=== PATIENT | female | born 1945 | race African-American/Black ===

== ENCOUNTER 2016-07-10 17:07 | Inpatient (IN) | payer MEDICARE ==
[2016-07-10 15:55] LABS: URINE APPEARANCE HAZY; URINE BILIRUBIN NEGATIVE (NEG); URINE BLOOD MODERATE (NEG); URINE COLOR YELLOW; URINE GLUCOSE (UA) NEGATIVE (NEG); URINE KETONE NEGATIVE (NEG); URINE LEUKOCYTE ESTERASE NEGATIVE (NEG); URINE NITRITE NEGATIVE (NEG); URINE PROTEIN MODERATE (NEG)
[2016-07-10 16:01] LABS: URINE AMORPHOUS 1+; URINE BACTERIA 3+
[2016-07-10 16:02] LABS: URINE EPITHELIAL CELLS 0 /[HPF] (0-10)
[2016-07-10 16:05] LABS: URINE RBC 30-50 /[HPF] (0-5)
[~2016-07-10 17:07] MED LIST: "\\\"BLOOD PRESSURE MED\\\""; ALL DAY ALLERGY10 M7 PO; ALPHAGAN P5 M1 EACH EYE; AUGMENTIN 875-1 EAC2 PO; AUGMENTIN875 MG PO; CALCIUM 500 +1 EAC9 PO; CATAPRES0.1 MG PO; CENTRUM TABLET1 TAB PO; COLACE100 MG PO; COMBIGAN EYE DRO5 ML OP; DILAUDID2 M1 PO; DILAUDID2 MG PO; DULCOLAX10 MG PR; DULCOLAX10 MG RC; DURAGESIC1 EAC1 TOP; ENALAPRIL MALEA10 MG PO; ENSURE PO; FENTANYL1 PATCH . TOP; FENTANYL1 PATCH .7 TOP; HYDROCODONE-AP473 ML PO; LEVAQUIN500 MG PO; LEVOXYL PO; LEVOXYL125 MCG PO; LISINOPRIL-HC PO; LISINOPRIL/HCTZ; LISINOPRIL10 M1 PO; LISINOPRIL20 MG PO; LISINOPRIL40 MG PO; MAXZIDE1 TAB PO; MEDROL4 M2 PO; MIRALAX17 G2 PO; NORCO 5/3251 TAB PO; NORVASC10 M2 PO; NORVASC10 MG PO; OMEPRAZOLE20 M2 PO; OS-CAL 500+D TA1 TAB PO; PLAVIX75 MG PO; POTASSIUM CHLO10 MEQ PO; PRAVACHOL10 MG PO; RANITIDINE HCL150 M3 PO; SENNA PLUS TAB1 EAC1 PO; TUSSIN100 MG/52 PO; TYLENOL325 M2 PO; TYLENOL325 MG PO; VITAMIN B6100 MG PO; VITAMIN B650 M1 PO; VITAMIN E400 UNI1 PO; ZESTORETIC 20-1 EAC1 PO; ZITHROMAX250 M1 PO; ZOFRAN4 MG PO
[2016-07-10 17:28] LABS: HCT-HEMATOCRIT 29.9 % (34.0-49.0); HGB-HEMOGLOBIN 9.8 gm/dl (12.0-15.5); LYMPH % 61.3 % (20-45); MCH (MEAN CORPUSCULAR HGB) 30.6 pg (28.0-32.0); MCHC MEAN CORPUSCULAR HGB CONC 32.8 % (32.0-36.0); MCV (MEAN CELL VOLUME) 93.4 fl (82.0-96.0); MEAN PLATELET VOLUME 9.6 cmc (9.4-12.4); MONO % 27.7 % (0-12); MONOCYTE ABSOLUTE COUNT 0.4 tho/cmm (0.0-1.2); PLATELET COUNT 139 tho/cmm (150-450); RED CELL DISTRIBUTION WIDTH 13.9 % (12.4-16.4)
[2016-07-10 17:31] LABS: NEUTROPHIL ABSOLUTE COUNT 0.2 tho/cmm (1.6-8.0)
[2016-07-10 17:33] LABS: NEUTROPHIL-AUTOMATED 0.2 tho/cmm (1.6-8.0); WHITE BLOOD COUNT 1.6 tho/cmm (4.0-10.0)
[2016-07-10 17:43] LABS: ALB/GLOB RATIO 0.8 (0.8-2.0); ALKALINE PHOSPHATASE 57 U/L (33-138); ALT/SGPT 18 U/L (12-78); ANION GAP 11 mmol/L (0-20); AST/SGOT 32 U/L (10-40); BILIRUBIN,TOTAL 0.4 mg/dl (0-1.5); BLOOD UREA NITROGEN 20 mg/dl (6-24); CALCIUM 8.2 mg/dl (8.5-10.5); CARBON DIOXIDE-VENOUS 27 mmol/L (22-32); CHLORIDE 104 mmol/l (96-110); CREATININE 1.71 mg/dl (0.50-1.10); GLUCOSE 83 mg/dL (70-110); POTASSIUM 4.2 mmol/L (3.7-5.1); SODIUM 138 mmol/L (135-145); eGFR VALUE FOR BLACK 34 mL/Min
[2016-07-10 17:44] LABS: CREATINE PHOSPHOKINASE (CPK) 206 U/L (21-215)
[2016-07-10 17:59] LABS: PROCALCITONIN 0.14 ng/ml (0.05-0.09)
[2016-07-10 18:03] LABS: CKMB 1.3 ng/ml (<3.6)
[2016-07-10 21:02] LABS: ALBUMIN 3.1 g/dl (3.5-5.0); ALKALINE PHOSPHATASE 56 U/L (33-138); BILIRUBIN,DIRECT <0.1 mg/dl (0.0-0.3); BILIRUBIN,INDIRECT 0.3 mg/dL (0.0-1.0); BILIRUBIN,TOTAL 0.4 mg/dl (0-1.5)
[2016-07-10 21:06] LABS: ALT/SGPT 16 U/L (12-78); AST/SGOT 30 U/L (10-40)
[2016-07-11 06:39] LABS: EOS % 0.6 % (0-7); HCT-HEMATOCRIT 30.1 % (34.0-49.0); HGB-HEMOGLOBIN 9.7 gm/dl (12.0-15.5); IMMATURE GRANULOCYTES ABSOLUTE 0.01 tho/cmm (0-0.03); IMMATURE GRANULOCYTES PERCENT 0.6 % (0-0.3); LYMPH % 65.9 % (20-45); LYMPH ABSOLUTE COUNT 1.1 tho/cmm (0.8-4.5); MCH (MEAN CORPUSCULAR HGB) 30.3 pg (28.0-32.0); MCHC MEAN CORPUSCULAR HGB CONC 32.2 % (32.0-36.0); MCV (MEAN CELL VOLUME) 94.1 fl (82.0-96.0); MEAN PLATELET VOLUME 9.9 cmc (9.4-12.4); MONO % 25.7 % (0-12); MONOCYTE ABSOLUTE COUNT 0.4 tho/cmm (0.0-1.2); NEUTROPHILS % 7.2 % (40-80); PLATELET COUNT 130 tho/cmm (150-450)
[2016-07-11 06:43] LABS: NEUTROPHIL ABSOLUTE COUNT 0.1 tho/cmm (1.6-8.0); NEUTROPHIL-AUTOMATED 0.1 tho/cmm (1.6-8.0); WHITE BLOOD COUNT 1.7 tho/cmm (4.0-10.0)
[2016-07-11 06:52] LABS: ANION GAP 13 mmol/L (0-20); BLOOD UREA NITROGEN 22 mg/dl (6-24); CALCIUM 7.9 mg/dl (8.5-10.5); CARBON DIOXIDE-VENOUS 29 mmol/L (22-32); CHLORIDE 107 mmol/l (96-110); CREATININE 1.57 mg/dl (0.50-1.10); GLUCOSE 109 mg/dL (70-110); MAGNESIUM 1.6 mg/dl (1.3-2.6); PHOSPHOROUS 2.9 mg/dl (2.5-4.9); SODIUM 145 mmol/L (135-145); eGFR VALUE FOR BLACK 38 mL/Min
[2016-07-12 07:43] LABS: HCT-HEMATOCRIT 24.9 % (34.0-49.0); HGB-HEMOGLOBIN 8.2 gm/dl (12.0-15.5); MCH (MEAN CORPUSCULAR HGB) 30.5 pg (28.0-32.0); MCHC MEAN CORPUSCULAR HGB CONC 32.9 % (32.0-36.0); MCV (MEAN CELL VOLUME) 92.6 fl (82.0-96.0); MEAN PLATELET VOLUME 9.7 cmc (9.4-12.4); PLATELET COUNT 131 tho/cmm (150-450); RED BLOOD COUNT 2.69 mil/cmm (4.00-5.20); RED CELL DISTRIBUTION WIDTH 14.2 % (12.4-16.4); WHITE BLOOD COUNT 2.3 tho/cmm (4.0-10.0)
[2016-07-12 08:08] LABS: ANION GAP 12 mmol/L (0-20); BLOOD UREA NITROGEN 14 mg/dl (6-24); CALCIUM 7.7 mg/dl (8.5-10.5); CARBON DIOXIDE-VENOUS 26 mmol/L (22-32); CHLORIDE 108 mmol/l (96-110); CREATININE 1.29 mg/dl (0.50-1.10); GLUCOSE 100 mg/dL (70-110); MAGNESIUM 2.1 mg/dl (1.3-2.6); POTASSIUM 3.6 mmol/L (3.7-5.1); SODIUM 142 mmol/L (135-145); eGFR VALUE FOR BLACK 48 mL/Min
[2016-07-12 09:17] LABS: BAND % 35 % (0-20); BAND ABSOLUTE COUNT 0.8 tho/cmm (0-2.0)
[2016-07-12 14:24] LABS: HCT-HEMATOCRIT 26.3 % (34.0-49.0); HGB-HEMOGLOBIN 8.6 gm/dl (12.0-15.5); MCV (MEAN CELL VOLUME) 92.9 fl (82.0-96.0); RED CELL DISTRIBUTION WIDTH 14.3 % (12.4-16.4)
[2016-07-13 05:50] LABS: HCT-HEMATOCRIT 30.5 % (34.0-49.0); MCH (MEAN CORPUSCULAR HGB) 30.6 pg (28.0-32.0); MCHC MEAN CORPUSCULAR HGB CONC 32.8 % (32.0-36.0); MCV (MEAN CELL VOLUME) 93.3 fl (82.0-96.0); NEUTROPHIL-AUTOMATED 2.9 tho/cmm (1.6-8.0); PLATELET COUNT 138 tho/cmm (150-450); RED BLOOD COUNT 3.27 mil/cmm (4.00-5.20); RED CELL DISTRIBUTION WIDTH 14.6 % (12.4-16.4)
[2016-07-13 05:54] LABS: BASO % 0.2 % (0-2); EOS % 0.2 % (0-7); IMMATURE GRANULOCYTES ABSOLUTE 0.77 tho/cmm (0-0.03); IMMATURE GRANULOCYTES PERCENT 14.1 % (0-0.3); LYMPH % 17.4 % (20-45); MONO % 15.6 % (0-12); MONOCYTE ABSOLUTE COUNT 0.9 tho/cmm (0.0-1.2); NEUTROPHIL ABSOLUTE COUNT 2.9 tho/cmm (1.6-8.0); NEUTROPHILS % 52.5 % (40-80); WHITE BLOOD COUNT 5.5 tho/cmm (4.0-10.0)
[2016-07-13 06:34] LABS: ANION GAP 12 mmol/L (0-20); BLOOD UREA NITROGEN 11 mg/dl (6-24); C-REACTIVE PROTEIN 3.1 mg/dl (0-0.9); CALCIUM 7.9 mg/dl (8.5-10.5); CARBON DIOXIDE-VENOUS 24 mmol/L (22-32); CHLORIDE 111 mmol/l (96-110); CREATININE 1.17 mg/dl (0.50-1.10); GLUCOSE 72 mg/dL (70-110); MAGNESIUM 1.7 mg/dl (1.3-2.6); POTASSIUM 4.3 mmol/L (3.7-5.1); SODIUM 143 mmol/L (135-145); eGFR VALUE FOR BLACK 54 mL/Min
[2016-07-13 06:55] LABS: PROCALCITONIN 0.16 ng/ml (0.05-0.09)
[2016-07-13] MEDS ORDERED: SYNTHROID50 MC1 PO (13:26)
[2016-12-13] MEDS ORDERED: LEVAQUIN750 M1 PO (20:43)
== END 2016-07-13 15:15 | DRG 809 ==
LOC: EDMED 17:07 → EMR2 19:43 → 5WF 21:39
PROVIDERS: Emergency Medicine; Internal Medicine; Internal Medicine Hematology & Oncology; Internal Medicine Infectious Disease; ADMIT Family Medicine
PROC: 05HC33Z Insertion of Infusion Device into Left Basilic Vein, Percutaneous Approach (ICD-10-PCS; principal; 2016-07-10)
DX: D70.9 Neutropenia, unspecified (principal); N17.9 Acute kidney failure, unspecified; E44.0 Moderate protein-calorie malnutrition; I34.1 Nonrheumatic mitral (valve) prolapse; I12.9 Hypertensive chronic kidney disease with stage 1 through stage 4 chronic kidney disease, or unspecified chronic kidney disease; N18.9 Chronic kidney disease, unspecified; I25.10 Atherosclerotic heart disease of native coronary artery without angina pectoris; K58.9 Irritable bowel syndrome, unspecified; W19.XXXA Unspecified fall, initial encounter; K90.0 Celiac disease; E03.9 Hypothyroidism, unspecified; E87.6 Hypokalemia; H40.9 Unspecified glaucoma; M19.90 Unspecified osteoarthritis, unspecified site; Z86.73 Personal history of transient ischemic attack (TIA), and cerebral infarction without residual deficits; Z85.51 Personal history of malignant neoplasm of bladder; Z86.718 Personal history of other venous thrombosis and embolism; Z88.6 Allergy status to analgesic agent; Z88.5 Allergy status to narcotic agent; Z88.2 Allergy status to sulfonamides; Z88.8 Allergy status to other drugs, medicaments and biological substances; Z85.118 Personal history of other malignant neoplasm of bronchus and lung; Z90.49 Acquired absence of other specified parts of digestive tract; Z68.23 Body mass index [BMI] 23.0-23.9, adult; I25.2 Old myocardial infarction
CPT/HCPCS: C1751; G8987-GO-CH; G8988-GO-CH; G8989-GO-CH; J0692; J1447; J1650; J2185; J2405; J3370; J3475; J7030